=== PATIENT | male | born 1995 | race African-American/Black ===

== ENCOUNTER 2016-07-27 13:22 | Emergency (ER) | payer OTHER ==
[2016-07-27 13:50] LABS: BASOPHILS 0.1 %; BASOPHILS ABSOLUTE 0.02 10/3/uL (0.0-0.16); EOSINOPHILS 0.2 %; EOSINOPHILS ABSOLUTE 0.04 10/3/uL (0.0-0.53); HEMATOCRIT 49.9 % (40.0-51.0); HEMOGLOBIN 17.7 g/dL (13.6-17.8); IMMATURE GRANULOCYTES 0.5 %; IMMATURE GRANULOCYTES ABSOLUTE 0.08 10/3/uL (0.0-0.11); LYMPHOCYTES 15.7 %; LYMPHOCYTES ABSOLUTE 2.63 10/3/uL (0.67-4.30); MEAN CORPUS HGB CONC 35.5 g/dL (32.0-36.0); MEAN CORPUSCULAR HEMOGLOB 30.6 pg (26.0-34.0); MEAN CORPUSCULAR VOLUME 86.2 fL (80-100); MEAN PLATELET VOLUME 10.2 fL (9.2-13.0); MONOCYTES 9.9 %; MONOCYTES ABSOLUTE 1.66 10/3/uL (0.21-1.20); NEUTROPHILS 73.6 %; NEUTROPHILS ABSOLUTE 12.28 10/3/uL (2.02-8.40); PLATELET COUNT 256 10/3/uL (150-400); RED CELL COUNT 5.79 10/6/uL (4.7-6.1); WHITE BLOOD CELLS 16.7 10/3/uL (4.5-10.5)
[2016-07-27 13:51] LABS: MANUAL DIFF NO %
[2016-07-27 13:57] LABS: ASCORBIC ACID (UR NOT ORDER) NEG (NEG); BILIRUBIN, URINE NEGATIVE (NEG); ER URINALYSIS TAT 0 Hrs 14 Mins; KETONE, URINE 20 MG/DL (NEG); LEUKOCYTE ESTERASE(NOT OR NEG (NEG); NITRITE (URINE) NEG (NEG); WBC (NOT ORDERED) (RFLEX) < 1 (0-5)
[2016-07-27 14:04] LABS: A/G RATIO 0.9 (0.7-1.9); ALBUMIN 4.1 G/DL (3.5-5.0); ALKALINE PHOSPHATASE 102 U/L (45-117); BUN (BLOOD UREA NITROGEN) 14 MG/DL (6-23); CALCIUM, SERUM 9.7 MG/DL (8.5-10.4); CHLORIDE, SERUM 95 MMOL/L (96-112); CO2 (CARBON DIOXIDE) 29 MMOL/L (24-34); CREATININE 1.25 MG/DL (0.70-1.30); GFR AFRICAN AMERICAN 93 ML/MIN (>=60); GFR NON AFRICAN AMERICAN 81 ML/MIN (>=60); GLOBULIN 4.7 G/DL (2.5-4.1); GLUCOSE, SERUM 95 MG/DL (60-99); POTASSIUM, SERUM 3.5 MMOL/L (3.5-5.3); SGOT(AST) 24 U/L (5-40); SGPT(ALT) 37 U/L (5-65); SODIUM, SERUM 132 MMOL/L (135-148); TOTAL BILIRUBIN 1.3 MG/DL (0-1.2); TOTAL PROTEIN 8.8 G/DL (6.0-8.5)
[2016-08-20] MEDS ORDERED: ENDOCET1 TAB PO (18:24)
[2016-08-20] MEDS ORDERED: PRILO PO (18:25)
[2016-08-20] MEDS ORDERED: REG PO (18:25)
[2016-08-20] MEDS ORDERED: ZOFRAN4 PO (18:26)
[2016-08-20] MEDS ORDERED: T PO (18:27)
== END 2016-07-27 18:41 | disposition home or self-care (01) ==
LOC: ER 13:22
PROVIDERS: Emergency Medicine
DX: R10.9 Unspecified abdominal pain (principal); R11.2 Nausea with vomiting, unspecified
CPT/HCPCS: 80053; 81001; 83690; 85025; 96374; 99284; J1885; J2405

== ENCOUNTER 2016-08-25 10:01 | Inpatient (IN) | payer OTHER ==
--- NOTE | ~2016-08-25 | DS ---
Discharge Summary [facility] [address] [facility] [place]. [address] NAME: SALVATORE MARQUEZ 3RD : [birth year] STATUS : DIS IN PAT#: [id number] AGE: 21 ADM/REG DATE : 08/25/16 MR#: [id number] REPORT SERV DATE: 09/01/16 DICTATED BY: ELIER CHAU DATE: 08/31/16 REPORT STATUS : Draft TRANSCRIBED BY: MODL DATE: 08/31/16 ADMISSION DATE: 08/25/2016 DISCHARGE DATE: 08/31/2016 REASON FOR ADMISSION: This is a 21-year-old male, who came in with a chief complaint of abdominal pain, nausea, and vomiting with unremarkable medical history. DISCHARGE DIAGNOSES: 1. Abdominal pain. 2. Nausea and vomiting. 3. Diaphoresis. 4. Leukocytosis. 5. Marijuana use. HOSPITAL COURSE: The patient admitted for abdominal pain, nausea, and vomiting. He was having severe acute episodes of abdominal pain, followed by diaphoresis and shaking and nausea and vomiting. He had several episodes while here at the hospital witnessed, had GI consultation. There was at first concern about his gallbladder, but he had acute abdominal series showed no significant abnormalities. No evidence of free intraperitoneal air. He had a CT of the abdomen and pelvis, which would show no acute GI or obstruction, normal appendix. No evidence of kidney stone or inflammation of the bowel to explain right upper quadrant or epigastric pain and then he had a HIDA scan, which showed no scintigraphic evidence of cystic or common bile obstruction and normal gallbladder, EF of 55% and he had a mesenteric ultrasound, which showed no evidence of any significant stenosis of the great vessels of mesentery identified. His liver function panel was normal during his stay. Amylase and lipase were within normal limits and he had endoscopic ultrasound. He had a colonoscopy done by Dr. Schmitz, which showed nodular ileal mucosa, which was biopsied, one 4 mm polyp in the ascending colon, which was resected and retrieved and examined, normal on direct and retroflexion views and then he had upper EGD which showed gastric petechiae, which biopsied likely from vomiting. Normal examined duodenum, which was biopsied as well, otherwise unremarkable examination. At this point, after the scope and multiple abdominal imaging all being normal, GI really had no further input. We simply treated him symptomatically with Zofran, Phenergan, and started him on Reglan. He had an another episode of abdominal pain and nausea and vomiting after returning from HIDA scan. He had one more event the next day, but then he went 48 hours without any further events once started on Reglan, so decision was made to discharge him. He has no primary care physician, so he will need to establish one. DISCHARGE CONDITION: Stable. DISCHARGE MEDICATIONS: 1. Phenergan 25 mg p.o. q.4 hours p.r.n. 2. Zofran 4 mg q.6 hours p.r.n. 3. Nexium 40 mg p.o. daily. 4. Reglan 5 mg p.o. q.a.c. and h.s. 5. Hydrocodone one to two tablets q.4 hours p.r.n. Discharge Summary [address] [address] NAME: SALVATORE MARQUEZ 3RD : [birth year] STATUS : DIS IN PAT#: [id number] AGE: 21 ADM/REG DATE : 08/25/16 MR#: [id number] REPORT SERV DATE: 09/01/16 DICTATED BY: ELIER CHAU DATE: 08/31/16 REPORT STATUS : Draft TRANSCRIBED BY: LIDIA DATE: 08/31/16 DISCHARGE PLAN: The patient is discharged home. Establish primary care as he was given information to call phone number [phone] here at the hospital to find out who, what providers were taking his insurance, currently accepting the patient, establish primary care and follow up in one to two weeks if possible. GI did not request any followup for this patient. DICTATED BY: PATRICIA Vargas/LIDIA Elier Chau APN / [id number] CC: Godfrey Peguero MD
--- NOTE | ~2016-08-25 | EGD ---
EGD REPORT [facility] [address] [place] [place] [address] NAME: SALVATORE SINGLETON 3RD : [birth year] STATUS : ADM Jorge PAT#: [id number] AGE: 21 ADM/REG DATE : 08/25/16 MR#: [id number] REPORT SERV DATE: 08/27/16 DICTATED BY: MAREK GARCÍA DATE: 08/27/16 REPORT STATUS : Draft TRANSCRIBED BY: [facility] DATE: 08/27/16 Endoscopy Center Patient Name: Salvatore Singleton Date of : 1995 Attending MD: MAREK GARCÍA MD Procedure Date No Time: 08/27/2016 Procedure: Colonoscopy Indications: Periumbilical abdominal pain Medicines: Monitored Anesthesia Care Complications: No immediate complications. Estimated blood loss: Minimal. Procedure: Pre-Anesthesia Assessment: - ASA Grade Assessment: II - A patient with mild systemic disease. After I obtained informed consent, the scope was passed under direct vision. Throughout the procedure, the patient's blood pressure, pulse, and oxygen saturations were monitored continuously. The CF [id number] was introduced through the anus and advanced to the terminal ileum, with identification of the appendiceal orifice and IC valve. The colonoscopy was performed without difficulty. The patient tolerated the procedure well. The quality of the bowel preparation was good. Findings: The perianal and digital rectal examinations were normal. Pertinent negatives include no palpable rectal lesions. An area of mucosa in the terminal ileum was nodular. Biopsies were taken with a cold forceps for histology. Estimated blood loss was minimal. A sessile polyp was found in the ascending colon. The polyp was 4 mm in size. The polyp was removed with a cold biopsy forceps. Resection and retrieval were complete. Estimated blood loss was minimal. The exam was otherwise without abnormality on direct and retroflexion views. Impression: - Nodular ileal mucosa. Biopsied. - One 4 mm polyp in the ascending colon. Resected and retrieved. - The examination was otherwise normal on direct and retroflexion views. Recommendation: - [facility] patient to [facility] care. - Clear liquid diet today. Procedure Code(s): --- Professional --- EGD REPORT [facility] [address] [address] NAME: SALVATORE SINGLETON 3RD : [birth year] STATUS : ADM Jorge PAT#: [id number] AGE: 21 ADM/REG DATE : 08/25/16 MR#: [id number] REPORT SERV DATE: 08/27/16 DICTATED BY: MAREK GARCÍA DATE: 08/27/16 REPORT STATUS : Draft TRANSCRIBED BY: [employer] DATE: 08/27/16 [id number], Colonoscopy, flexible, proximal to splenic flexure; with biopsy, single or multiple Diagnosis Code(s): --- Professional --- K63.89, Other specified diseases of intestine D12.2, Benign neoplasm of ascending colon R10.33, Periumbilical pain CPT copyright 2013 [employer]. All rights reserved. The codes documented in this report are preliminary and upon certified coder review may be revised to meet current compliance requirements. Marek García MD MAREK GARCÍA MD 08/27/2016 9:20 AM This report has been signed electronically. Number of Addenda: 0 Note Initiated On: 08/27/2016 7:59 AM Scope Withdrawal Time 0 hours 18 minutes 5 seconds [address] [id number]
--- NOTE | ~2016-08-25 | HP ---
History And Physical [place] [address] [facility] [place]. [address] NAME: SALVATORE MARQUEZ 3RD : [birth year] STATUS : ADM Jorge PAT#: [id number] AGE: 21 ADM/REG DATE : 08/25/16 MR#: [id number] REPORT SERV DATE: 08/25/16 DICTATED BY: MIKEL ROSE DATE: 08/25/16 REPORT STATUS : Draft TRANSCRIBED BY: MODL DATE: 08/25/16 DATE OF ADMISSION: 08/25/2016 CHIEF COMPLAINT: Abdominal pain. HISTORY OF PRESENT ILLNESS: The patient is a 21-year-old male. He has complained of abdominal pain today, states his symptoms have been going on approximately a month. It began around July 24, since that time, he has apparently had 2 evaluations in the [facility] and 1 at [facility] and 1 to 2 evaluations here at [facility] including today as well as an in-patient stay here, recently discharged and a clinic visit with a local brush trimming machine setter and imaging done at [facility], all these records are currently unavailable for me today the patient states that the consistent symptoms he has had since July 24 are abdominal pain. He states it usually begins after he eats, sometimes but up to several hours. He will usually get abdominal pain. He describes it as periumbilical. He states it is sharp and stabbing and will last several minutes and usually associated with nausea. If he does vomit, it is usually mucus, it is not the food he ate and he has had 1 abnormal bowel movement over this time. It is not a consistent problem. He has had no documented temperature. He does not seem to notice it with any particular type of food. It does seem to be more prominent in the morning. He has had multiple medications that he is unable to recall specifically prescribed through all his various appointments noted and that seemed to help. He presented back to the emergency room today. Hospitalist service was asked to admit with unresolved symptoms and a mild leukocytosis. PAST MEDICAL HISTORY: Otherwise unremarkable. PAST SURGICAL HISTORY: He had a cyst removed from his chin approximately 13 years ago. MEDICATIONS: Nexium 40, Zofran, and Phenergan. ALLERGIES: NONE. FAMILY HISTORY: There are a lot of malignancies including esophageal and breast cancer on his mom's side of the family but not the immediate family. SOCIAL HISTORY: He will occasionally use marijuana. No alcohol or smoking. REVIEW OF SYSTEMS: HEENT: No complaints. CARDIOVASCULAR: No chest pain or palpitations. PULMONARY: No cough or shortness of breath. GI: As covered in HPI. : He has not noticed any dysuria, frequency, or urgency symptoms with his abdominal pain. NEUROMUSCULOSKELETAL: No aches, pains, myalgia, rash, otherwise 10-point review of systems is negative. PHYSICAL EXAMINATION: VITAL SIGNS: Blood pressure 131/83, temperature 98.2, pulse was 117, respirations 22, and History And Physical [address] [address] NAME: SALVATORE MARQUEZ 3RD : [birth year] STATUS : ADM Jorge PAT#: [id number] AGE: 21 ADM/REG DATE : 08/25/16 MR#: [id number] REPORT SERV DATE: 08/25/16 DICTATED BY: MIKEL ROSE DATE: 08/25/16 REPORT STATUS : Draft TRANSCRIBED BY: LIDIA DATE: 08/25/16 weight 67 kg. GENERAL: In general, he is awake, alert, and oriented. HEENT: Normocephalic, atraumatic. Sclerae nonicteric. NECK: Supple. HEART: Heart is tachycardic, regular. LUNGS: Clear to auscultation. ABDOMEN: No guarding, rebound tenderness, or distention. No periumbilical and no suprapubic pain. EXTREMITIES: No clubbing, cyanosis, or edema. NEUROLOGIC: Grossly nonfocal. LABS: BMP from today shows a potassium of 3.4, otherwise unremarkable. He does have a high normal creatinine at 1.22. Lipase was 230. His lab work from the was only otherwise remarkable for a bilirubin at that time of 1.5. White count today 18.4 with an H and H of 16.6 and 45.8, platelets are 229. Previously white count of 16,000 on the . Urinalysis was cloudy but otherwise unremarkable. Acute abdominal series done today shows no evidence of acute abnormality within the abdomen. There is probable contrast in the appendix. No bowel gas abnormalities. No evidence of free air. No areas of significant mass effect. ASSESSMENT: Abdominal pain with nausea and vomiting. Mild leukocytosis. PLAN: The patient has been admitted. Additional lab, IV fluids, question repeat CT. We will check a procalcitonin and lactate. Reasonable pain and nausea medications. TLF/MODL Mikel Rose M.D. / [id number]
--- NOTE | ~2016-08-25 | EGD ---
EGD REPORT [facility] [address] [place] [address] NAME: SALVATORE SINGLETON 3RD : [birth year] STATUS : ADM Jorge PAT#: [id number] AGE: 21 ADM/REG DATE : 08/25/16 MR#: [id number] REPORT SERV DATE: 08/27/16 DICTATED BY: MAREK GARCÍA DATE: 08/27/16 REPORT STATUS : Draft TRANSCRIBED BY: [facility] DATE: 08/27/16 Endoscopy Center Patient Name: Salvatore Singleton Date of : 1995 Attending MD: MAREK GARCÍA MD Procedure Date No Time: 08/27/2016 Procedure: Upper GI endoscopy Indications: Epigastric abdominal pain, Periumbilical abdominal pain, Persistent vomiting of unknown cause Medicines: Monitored Anesthesia Care Complications: No immediate complications. Estimated blood loss: Minimal. Procedure: Pre-Anesthesia Assessment: - ASA Grade Assessment: II - A patient with mild systemic disease. After obtaining informed consent, the endoscope was passed under direct vision. Throughout the procedure, the patient's blood pressure, pulse, and oxygen saturations were monitored continuously. The GIF [id number] was introduced through the mouth, and advanced to the second part of duodenum. The upper GI endoscopy was accomplished without difficulty. The patient tolerated the procedure well. Findings: The examined esophagus was normal. Multiple localized petechiae were found in the gastric fundus. Biopsies were taken with a cold forceps for histology. Estimated blood loss was minimal. The examined duodenum was normal. Biopsies were taken with a cold forceps for histology. Estimated blood loss was minimal. The cardia and gastric fundus were normal on retroflexion. Impression: - Gastric petechia(e). Biopsied. Likely from vomiting. - Normal examined duodenum. Biopsied. - Otherwise unremarkable examination Recommendation: - Perform a colonoscopy today. - Await pathology results. Procedure Code(s): --- Professional --- 42899, Esophagogastroduodenoscopy, flexible, transoral; with biopsy, single or multiple Diagnosis Code(s): --- Professional --- EGD REPORT [facility] [address] [place]. [address] NAME: SALVATORE SINGLETON 3RD : [birth year] STATUS : ADM Jorge PAT#: [id number] AGE: 21 ADM/REG DATE : 08/25/16 MR#: [id number] REPORT SERV DATE: 08/27/16 DICTATED BY: MAREK GARCÍA DATE: 08/27/16 REPORT STATUS : Draft TRANSCRIBED BY: [employer] DATE: 08/27/16 K31.9, Disease of stomach and duodenum, unspecified R10.13, Epigastric pain R10.33, Periumbilical pain R11.10, Vomiting, unspecified CPT copyright 2013 [employer]. All rights reserved. The codes documented in this report are preliminary and upon sharepoint solutions developer review may be revised to meet current compliance requirements. Marek García MD MAREK GARCÍA MD 08/27/2016 8:41 AM This report has been signed electronically. Number of Addenda: 0 Note Initiated On: 08/27/2016 8:16 AM Scope Withdrawal Time 0 hours 0 minutes 0 seconds [address] [place] [address]
--- NOTE | ~2016-08-25 | CN ---
Consultation Report [facility] [address] [place]. [address] NAME: SALVATORE SINGLETON 3RD : [birth year] STATUS : ADM Jorge PAT#: [id number] AGE: 21 ADM/REG DATE : 08/25/16 MR#: [id number] REPORT SERV DATE: 08/25/16 DICTATED BY: EUGENIA KHOURY DATE: 08/25/16 REPORT STATUS : Draft TRANSCRIBED BY: MODL DATE: 08/25/16 GI CONSULTATION DATE OF CONSULTATION: 08/25/2016 A 21-year-old male patient admitted on 08/25/2016. REASON FOR CONSULTATION: Evaluation and management of abdominal pain, nausea, vomiting, and leukocytosis. HISTORY OF PRESENT ILLNESS: Mr. Salvatore Singleton is a pleasant 21-year-old male patient, who has seen and admitted in [facility] emergency room on 08/30/2016. He is here with a chief complaint of abdominal pain. His symptoms began on 07/24/2016. He states that he woke up one morning and had a bowel movement and experienced extreme right upper quadrant epigastric abdominal pain. He began to have nausea and vomiting. Abdominal discomfort persisted throughout the day. He states that he breaks out into these diaphoretic episodes. He has not had any fever but he has had chilling. His symptoms have persisted. He has been seen, what the mother states, at [facility] emergency department as well as [facility] Department and he was admitted here to [facility] on the CV unit last week and was discharged on August 22. He was seen by Dr. Nascimento, tube depatcher, who per the mother, performed an upper endoscopy which was reported as negative. There are no records for review at this time in the system. The patient states that his symptoms typically improved somewhat in the afternoon. He is able to take in some liquids and some food but then everything begins again in the morning. He has a history of being in the [place] but he has been back in the [place] area since 2014. He does admit to smoking marijuana; he states every 3 to 4 days, he will smoke marijuana and when he does smoke, he smokes what he indicates is a large amount. He denies any other illicit drugs. He denies any heartburn or indigestion. He describes this as a sharp, stabbing right upper quadrant epigastric abdominal pain. He denies blood in his emesis. He denies blood in his stools. He has not seen any melena. His white blood cell count on admission 18.4, hemoglobin was 16.6 with hematocrit of 48.8. He had normal LFTs. He states that he has had a CT scan done at [place] but is unsure of the results. Secondary to the persistence of his symptoms and inability to continue with his activities of daily living, he re-presented today for further evaluation. KUB was obtained and only showed residual contrast present in the right lower quadrant. The patient's mother states that he had an outpatient upper GI series last Thursday at [facility] which was reported to her as negative. I have discussed with the patient as well as the patient's mother present at the bedside that we will plan on repeating CT scan with oral and IV contrast; if that is negative, we would potentially perform a HIDA scan. I have discussed with them EGD and colonoscopy for repeat of those tests as he has never had a colonoscopy and they are agreeable to proceed with that. Of note, the patient was to be seen in our office on 08/27/2016, in the evening hours with nurse practitioner, Anabel Polanco. PAST MEDICAL HISTORY: He has a past medical history positive for recent epigastric abdominal pain, nausea, and vomiting. Consultation Report [address] [place]. [address] NAME: SALVATORE SINGLETON 3RD : [birth year] STATUS : ADM Jorge PAT#: [id number] AGE: 21 ADM/REG DATE : 08/25/16 MR#: [id number] REPORT SERV DATE: 08/25/16 DICTATED BY: EUGENIA KHOURY DATE: 08/25/16 REPORT STATUS : Draft TRANSCRIBED BY: MODL DATE: 08/25/16 SURGICAL HISTORY: Cyst removal from underneath his chin when he was in the 5th grade. ALLERGIES: HE DENIES. FAMILY HISTORY: Esophageal malignancy in some family members on his mother's side. SOCIAL HISTORY: He denies alcohol or tobacco. He states he uses marijuana occasionally. HOME MEDICATIONS: Consist of Nexium, Zofran, and Phenergan. REVIEW OF SYSTEMS: A 10-point review of systems has been obtained with pertinent positives being addressed in the history of present illness. PHYSICAL EXAMINATION: VITAL SIGNS: Temperature 98.2, pulse 117, respirations 22, and blood pressure 131/83. NEUROLOGIC: Physical exam reveals an alert, male, resting in bed with no focal deficits. Generally cooperative. He is in mild distress secondary to abdominal discomfort as well as diaphoresis. He is awake, alert, and oriented x3. HEAD, EARS, EYES, NOSE, AND THROAT: He has some very mild looking icterus to his conjunctiva; however, his total bilirubin is normal. His pupils are equal, round, and reactive to light and accommodation. Normocephalic and atraumatic. NECK: Supple. No JVD or palpable nodes. LUNGS: His lungs are clear anteriorly with normal respiratory effort exhibited with equal expansion. CARDIOVASCULAR SYSTEM: Regular rate and rhythm but tachycardic. ABDOMEN: Soft with tenderness to palpation to the right epigastric region which causes him voluntary guarding. He has hypoactive bowel sounds throughout all four quadrants. EXTREMITIES: No edema. Normal distal pulses. SKIN: Warm, dry, and intact. PERTINENT LABS: Sodium 136, potassium 3.4, BUN is 8, creatinine 1.22. White count 18.4, hemoglobin 16.6, and hematocrit 45.8. Total bilirubin 0.6, alkaline phosphatase 86, ALT 22, and AST 14. ASSESSMENT/PLAN: 1. Abdominal pain, persistent x1 month, epigastric and right upper quadrant in nature. Question if this could be biliary dyskinesia, peptic ulcer disease, gastritis, Helicobacter pylori, or constipation. 2. Nausea with vomiting. 3. Diaphoresis. PLAN: 1. Check LFTs. Consultation Report [address] [place]. [address] NAME: SALVATORE SINGLETON 3RD : [birth year] STATUS : ADM Jorge PAT#: [id number] AGE: 21 ADM/REG DATE : 08/25/16 MR#: [id number] REPORT SERV DATE: 08/25/16 DICTATED BY: EUGENIA KHOURY DATE: 08/25/16 REPORT STATUS : Draft TRANSCRIBED BY: LIDIA DATE: 08/25/16 2. A.m. labs. 3. CBC, BMP. 4. CT scan of the abdomen and pelvis with oral and IV contrast. 5. If negative CT scan of the gallbladder, we would recommend HIDA scan. 6. EGD and colonoscopy on Thursday. If the patient does have diarrhea, we would send for stool studies, C. diff, ova and parasites, and wbc's. 7. The plan of care was discussed with the patient as well as mother who is present at the bedside. Other recommendations to follow testing. EULALIA/LIDIA RAY Leija / [id number] CC: Gilbert Ferguson M.D.
[2016-08-25 09:53] LABS: BASOPHILS 0.1 %; BASOPHILS ABSOLUTE 0.02 10/3/uL (0.0-0.16); EOSINOPHILS 0.2 %; EOSINOPHILS ABSOLUTE 0.04 10/3/uL (0.0-0.53); ER CBC TAT 0 Hrs 05 Mins; HEMATOCRIT 45.8 % (40.0-51.0); HEMOGLOBIN 16.6 g/dL (13.6-17.8); IMMATURE GRANULOCYTES 0.4 %; IMMATURE GRANULOCYTES ABSOLUTE 0.07 10/3/uL (0.0-0.11); LYMPHOCYTES 15.1 %; LYMPHOCYTES ABSOLUTE 2.79 10/3/uL (0.67-4.30); MEAN CORPUS HGB CONC 36.2 g/dL (32.0-36.0); MEAN CORPUSCULAR HEMOGLOB 31.1 pg (26.0-34.0); MEAN CORPUSCULAR VOLUME 85.9 fL (80-100); MEAN PLATELET VOLUME 9.5 fL (9.2-13.0); MONOCYTES 6.1 %; MONOCYTES ABSOLUTE 1.12 10/3/uL (0.21-1.20); NEUTROPHILS 78.1 %; NEUTROPHILS ABSOLUTE 14.39 10/3/uL (2.02-8.40); PLATELET COUNT 299 10/3/uL (150-400); RBC DISTRIBUTION WIDTH 12.6 % (12.0-16.0); RED CELL COUNT 5.33 10/6/uL (4.7-6.1); WHITE BLOOD CELLS 18.4 10/3/uL (4.5-10.5)
[2016-08-25 09:54] LABS: MANUAL DIFF NO %
[~2016-08-25 10:01] MED LIST: ENDOCET1 TAB PO; PRILO PO; REG PO; T PO; ZOFRAN4 PO
[2016-08-25 10:08] LABS: A/G RATIO 1.2 (0.7-1.9); ALBUMIN 4.5 G/DL (3.5-5.0); ALKALINE PHOSPHATASE 86 U/L (45-117); BUN (BLOOD UREA NITROGEN) 8 MG/DL (6-23); CALCIUM, SERUM 9.9 MG/DL (8.5-10.4); CHLORIDE, SERUM 99 MMOL/L (96-112); CO2 (CARBON DIOXIDE) 26 MMOL/L (24-34); CREATININE 1.22 MG/DL (0.70-1.30); GFR AFRICAN AMERICAN 96 ML/MIN (>=60); GFR NON AFRICAN AMERICAN 83 ML/MIN (>=60); GLOBULIN 3.8 G/DL (2.5-4.1); GLUCOSE, SERUM 110 MG/DL (60-99); POTASSIUM, SERUM 3.4 MMOL/L (3.5-5.3); SGOT(AST) 14 U/L (5-40); SGPT(ALT) 22 U/L (5-65); SODIUM, SERUM 136 MMOL/L (135-148); TOTAL BILIRUBIN 0.6 MG/DL (0-1.2); TOTAL PROTEIN 8.3 G/DL (6.0-8.5)
[2016-08-25] MEDS ORDERED: ZOFRAN4 PO (11:41)
[2016-08-25] MEDS ORDERED: PR25 PO (11:41)
[2016-08-25 11:51] LABS: ASCORBIC ACID (UR NOT ORDER) NEG (NEG); BILIRUBIN, URINE NEGATIVE (NEG); KETONE, URINE 20 MG/DL (NEG); LEUKOCYTE ESTERASE(NOT OR NEG (NEG); NITRITE (URINE) NEG (NEG); WBC (NOT ORDERED) (RFLEX) < 1 (0-5)
[2016-08-25 16:56] LABS: ULTRASENSITIVE TSH 0.539 MCIU/ML (0.358-3.740)
[2016-08-25 16:57] LABS: PHOSPHORUS, SERUM 0.8 MG/DL (2.5-4.5)
[2016-08-25 17:35] LABS: PROCALCITONIN < 0.05 ng/mL (<0.5)
[2016-08-25 19:06] LABS: AMPHETAMINES (NOT ORD) NEG (NEG); BARBITURATES (NOT ORDERED NEG (NEG); BENZODIAZEPINES (NOT ORD) NEG (NEG); CANNABINOIDS (THC) POS (NEG); COCAINE (NOT ORDERED) NEG (NEG); OPIATES NEG (NEG); PHENCYCLIDINE(PCP) NEG (NEG); TRICYCLICS NEG (NEG)
[2016-08-26 06:24] LABS: INTERNATIONAL NORMAL RATI 1.2 UNITS (-); PROTIME (NOT ORD) 14.9 SEC (12.0-14.5)
[2016-08-26 06:26] LABS: ALBUMIN 3.2 G/DL (3.5-5.0); ALKALINE PHOSPHATASE 61 U/L (45-117); BUN (BLOOD UREA NITROGEN) 4 MG/DL (6-23); CALCIUM, SERUM 8.7 MG/DL (8.5-10.4); CHLORIDE, SERUM 107 MMOL/L (96-112); CO2 (CARBON DIOXIDE) 30 MMOL/L (24-34); CREATININE 0.99 MG/DL (0.70-1.30); DIRECT BILIRUBIN 0.1 MG/DL (0.0-0.4); GFR AFRICAN AMERICAN 124 ML/MIN (>=60); GFR NON AFRICAN AMERICAN 107 ML/MIN (>=60); GLUCOSE, SERUM 92 MG/DL (60-99); INDIRECT BILIRUBIN(NOT ORDER) 0.5 MG/DL (0.1-0.9); POTASSIUM, SERUM 4.3 MMOL/L (3.5-5.3); SGOT(AST) 10 U/L (5-40); SGPT(ALT) 16 U/L (5-65); SODIUM, SERUM 140 MMOL/L (135-148); TOTAL BILIRUBIN 0.6 MG/DL (0-1.2)
[2016-08-26 06:32] LABS: BASOPHILS 0.2 %; BASOPHILS ABSOLUTE 0.03 10/3/uL (0.0-0.16); EOSINOPHILS 0.8 %; EOSINOPHILS ABSOLUTE 0.12 10/3/uL (0.0-0.53); HEMOGLOBIN 13.4 g/dL (13.6-17.8); IMMATURE GRANULOCYTES 0.6 %; IMMATURE GRANULOCYTES ABSOLUTE 0.08 10/3/uL (0.0-0.11); LYMPHOCYTES 28.7 %; LYMPHOCYTES ABSOLUTE 4.12 10/3/uL (0.67-4.30); MEAN CORPUSCULAR HEMOGLOB 30.5 pg (26.0-34.0); MEAN PLATELET VOLUME 9.9 fL (9.2-13.0); MONOCYTES 7.7 %; NEUTROPHILS ABSOLUTE 8.91 10/3/uL (2.02-8.40); PLATELET COUNT 264 10/3/uL (150-400); RBC DISTRIBUTION WIDTH 12.9 % (12.0-16.0); WHITE BLOOD CELLS 14.4 10/3/uL (4.5-10.5)
[2016-08-26 06:37] LABS: HEMATOCRIT 39.2 % (40.0-51.0); MANUAL DIFF NO %; MEAN CORPUS HGB CONC 34.2 g/dL (32.0-36.0); MEAN CORPUSCULAR VOLUME 89.1 fL (80-100)
[2016-08-27 04:29] LABS: BASOPHILS 0.2 %; BASOPHILS ABSOLUTE 0.02 10/3/uL (0.0-0.16); EOSINOPHILS 0.9 %; HEMATOCRIT 39.1 % (40.0-51.0); HEMOGLOBIN 13.4 g/dL (13.6-17.8); IMMATURE GRANULOCYTES 0.3 %; IMMATURE GRANULOCYTES ABSOLUTE 0.03 10/3/uL (0.0-0.11); LYMPHOCYTES 32.6 %; LYMPHOCYTES ABSOLUTE 3.75 10/3/uL (0.67-4.30); MEAN CORPUS HGB CONC 34.3 g/dL (32.0-36.0); MEAN CORPUSCULAR HEMOGLOB 30.4 pg (26.0-34.0); MEAN CORPUSCULAR VOLUME 88.7 fL (80-100); MEAN PLATELET VOLUME 9.3 fL (9.2-13.0); MONOCYTES 7.5 %; MONOCYTES ABSOLUTE 0.86 10/3/uL (0.21-1.20); NEUTROPHILS 58.5 %; NEUTROPHILS ABSOLUTE 6.74 10/3/uL (2.02-8.40); PLATELET COUNT 276 10/3/uL (150-400); RBC DISTRIBUTION WIDTH 12.8 % (12.0-16.0); RED CELL COUNT 4.41 10/6/uL (4.7-6.1); WHITE BLOOD CELLS 11.5 10/3/uL (4.5-10.5)
[2016-08-27 04:30] LABS: MANUAL DIFF NO %
[2016-08-27 04:35] LABS: INTERNATIONAL NORMAL RATI 1.1 UNITS (-); PROTIME (NOT ORD) 14.3 SEC (12.0-14.5)
[2016-08-27 04:46] LABS: BUN (BLOOD UREA NITROGEN) 3 MG/DL (6-23); CALCIUM, SERUM 9.1 MG/DL (8.5-10.4); CHLORIDE, SERUM 104 MMOL/L (96-112); CO2 (CARBON DIOXIDE) 30 MMOL/L (24-34); CREATININE 0.94 MG/DL (0.70-1.30); GFR AFRICAN AMERICAN 132 ML/MIN (>=60); GFR NON AFRICAN AMERICAN 114 ML/MIN (>=60); GLUCOSE, SERUM 96 MG/DL (60-99); POTASSIUM, SERUM 3.9 MMOL/L (3.5-5.3); SODIUM, SERUM 140 MMOL/L (135-148)
[2016-08-28 05:00] LABS: BUN (BLOOD UREA NITROGEN) 5 MG/DL (6-23); CALCIUM, SERUM 9.3 MG/DL (8.5-10.4); CHLORIDE, SERUM 105 MMOL/L (96-112); CO2 (CARBON DIOXIDE) 27 MMOL/L (24-34); CREATININE 0.99 MG/DL (0.70-1.30); GFR AFRICAN AMERICAN 124 ML/MIN (>=60); GFR NON AFRICAN AMERICAN 107 ML/MIN (>=60); GLUCOSE, SERUM 80 MG/DL (60-99); POTASSIUM, SERUM 3.9 MMOL/L (3.5-5.3); SODIUM, SERUM 139 MMOL/L (135-148)
[2016-08-28 05:05] LABS: BASOPHILS 0.2 %; BASOPHILS ABSOLUTE 0.04 10/3/uL (0.0-0.16); EOSINOPHILS 0.8 %; EOSINOPHILS ABSOLUTE 0.17 10/3/uL (0.0-0.53); HEMATOCRIT 42.9 % (40.0-51.0); HEMOGLOBIN 14.8 g/dL (13.6-17.8); IMMATURE GRANULOCYTES 0.4 %; IMMATURE GRANULOCYTES ABSOLUTE 0.08 10/3/uL (0.0-0.11); LYMPHOCYTES 19.8 %; LYMPHOCYTES ABSOLUTE 4.28 10/3/uL (0.67-4.30); MEAN CORPUS HGB CONC 34.5 g/dL (32.0-36.0); MEAN CORPUSCULAR HEMOGLOB 30.3 pg (26.0-34.0); MEAN CORPUSCULAR VOLUME 87.9 fL (80-100); MEAN PLATELET VOLUME 9.9 fL (9.2-13.0); MONOCYTES 7.3 %; MONOCYTES ABSOLUTE 1.58 10/3/uL (0.21-1.20); NEUTROPHILS 71.5 %; PLATELET COUNT 288 10/3/uL (150-400); RBC DISTRIBUTION WIDTH 12.9 % (12.0-16.0); RED CELL COUNT 4.88 10/6/uL (4.7-6.1); WHITE BLOOD CELLS 21.7 10/3/uL (4.5-10.5)
[2016-08-28 05:06] LABS: MANUAL DIFF NO %
[2016-08-29 04:10] LABS: BASOPHILS 0.2 %; BASOPHILS ABSOLUTE 0.03 10/3/uL (0.0-0.16); EOSINOPHILS 1.6 %; EOSINOPHILS ABSOLUTE 0.23 10/3/uL (0.0-0.53); HEMOGLOBIN 12.9 g/dL (13.6-17.8); IMMATURE GRANULOCYTES 0.5 %; IMMATURE GRANULOCYTES ABSOLUTE 0.07 10/3/uL (0.0-0.11); LYMPHOCYTES 27.7 %; MEAN CORPUS HGB CONC 33.7 g/dL (32.0-36.0); MEAN CORPUSCULAR HEMOGLOB 30.5 pg (26.0-34.0); MEAN CORPUSCULAR VOLUME 90.5 fL (80-100); MEAN PLATELET VOLUME 9.6 fL (9.2-13.0); MONOCYTES 7.1 %; MONOCYTES ABSOLUTE 1.03 10/3/uL (0.21-1.20); NEUTROPHILS 62.9 %; PLATELET COUNT 285 10/3/uL (150-400); RED CELL COUNT 4.23 10/6/uL (4.7-6.1); WHITE BLOOD CELLS 14.5 10/3/uL (4.5-10.5)
[2016-08-29 04:12] LABS: HEMATOCRIT 38.3 % (40.0-51.0); MANUAL DIFF NO %
[2016-08-29 04:57] LABS: ALBUMIN 3.2 G/DL (3.5-5.0); ALKALINE PHOSPHATASE 57 U/L (45-117); BUN (BLOOD UREA NITROGEN) 8 MG/DL (6-23); CALCIUM, SERUM 8.7 MG/DL (8.5-10.4); CHLORIDE, SERUM 109 MMOL/L (96-112); CO2 (CARBON DIOXIDE) 32 MMOL/L (24-34); CREATININE 1.06 MG/DL (0.70-1.30); DIRECT BILIRUBIN < 0.1 MG/DL (0.0-0.4); FERRITIN 223 NG/ML (26-388); FOLATE 6.6 NG/ML (>5.2); GFR AFRICAN AMERICAN 114 ML/MIN (>=60); GFR NON AFRICAN AMERICAN 98 ML/MIN (>=60); GLUCOSE, SERUM 78 MG/DL (60-99); INDIRECT BILIRUBIN(NOT ORDER) 0.6 MG/DL (0.1-0.9); IRON BINDING CAPACITY 233 MCG/DL (250-450); IRON, SERUM 69 MCG/DL (35-150); POTASSIUM, SERUM 3.7 MMOL/L (3.5-5.3); SGOT(AST) 9 U/L (5-40); SGPT(ALT) 14 U/L (5-65); SODIUM, SERUM 144 MMOL/L (135-148); TOTAL BILIRUBIN 0.7 MG/DL (0-1.2); TOTAL PROTEIN 6.1 G/DL (6.0-8.5)
[2016-08-30 04:09] LABS: BASOPHILS 0.2 %; BASOPHILS ABSOLUTE 0.03 10/3/uL (0.0-0.16); EOSINOPHILS 0.9 %; EOSINOPHILS ABSOLUTE 0.14 10/3/uL (0.0-0.53); HEMATOCRIT 39.9 % (40.0-51.0); HEMOGLOBIN 13.8 g/dL (13.6-17.8); IMMATURE GRANULOCYTES 0.4 %; IMMATURE GRANULOCYTES ABSOLUTE 0.07 10/3/uL (0.0-0.11); LYMPHOCYTES 26.6 %; LYMPHOCYTES ABSOLUTE 4.17 10/3/uL (0.67-4.30); MANUAL DIFF NO %; MEAN CORPUS HGB CONC 34.6 g/dL (32.0-36.0); MEAN CORPUSCULAR HEMOGLOB 30.7 pg (26.0-34.0); MEAN CORPUSCULAR VOLUME 88.9 fL (80-100); MEAN PLATELET VOLUME 9.5 fL (9.2-13.0); MONOCYTES 7.5 %; MONOCYTES ABSOLUTE 1.17 10/3/uL (0.21-1.20); NEUTROPHILS 64.4 %; NEUTROPHILS ABSOLUTE 10.09 10/3/uL (2.02-8.40); PLATELET COUNT 307 10/3/uL (150-400); RBC DISTRIBUTION WIDTH 12.7 % (12.0-16.0); RED CELL COUNT 4.49 10/6/uL (4.7-6.1); WHITE BLOOD CELLS 15.7 10/3/uL (4.5-10.5)
[2016-08-30 04:21] LABS: BUN (BLOOD UREA NITROGEN) 5 MG/DL (6-23); CALCIUM, SERUM 9.3 MG/DL (8.5-10.4); CHLORIDE, SERUM 106 MMOL/L (96-112); CO2 (CARBON DIOXIDE) 29 MMOL/L (24-34); GFR AFRICAN AMERICAN 122 ML/MIN (>=60); GFR NON AFRICAN AMERICAN 106 ML/MIN (>=60); GLUCOSE, SERUM 89 MG/DL (60-99); POTASSIUM, SERUM 3.7 MMOL/L (3.5-5.3); SODIUM, SERUM 141 MMOL/L (135-148)
[2016-08-31] MEDS ORDERED: REG5 PO (12:44)
[2016-08-31] MEDS ORDERED: NORCO1 TA1 PO (12:48)
[2016-09-03 14:25] LABS: COPROPORPHYRIN [CALC] 109 ug/24h (<110); UROPORPHYRIN [CALC] 15 ug/24h (<50)
[2016-09-04 11:18] LABS: TIME 24 h (()); VOLUME 1250 mL (())
== END 2016-08-31 14:12 | disposition home or self-care (01) | DRG 392 ==
LOC: ER 10:01 → CDU1 14:33 → CDU2 15:11 → 5SO 08-30 15:33
PROVIDERS: Emergency Medicine; Internal Medicine; Internal Medicine Gastroenterology; Nurse Practitioner Family; Nurse Practitioner Gerontology
PROC: 0DBK8ZZ Excision of Ascending Colon, Via Natural or Artificial Opening Endoscopic (ICD-10-PCS; 2016-08-27)
PROC: 0DB98ZX Excision of Duodenum, Via Natural or Artificial Opening Endoscopic, Diagnostic (ICD-10-PCS; principal; 2016-08-27 08:00)
PROC: 0DB68ZX Excision of Stomach, Via Natural or Artificial Opening Endoscopic, Diagnostic (ICD-10-PCS; 2016-08-27 08:00)
DX: R10.11 Right upper quadrant pain (principal); D12.2 Benign neoplasm of ascending colon; R11.2 Nausea with vomiting, unspecified; F12.90 Cannabis use, unspecified, uncomplicated; R61 Generalized hyperhidrosis
CPT/HCPCS: 74022; 74177; 78226; 78227; 80048; 80053; 80076; 80305; 81001; 82607; 82728; 82746; 83540; 83550; 83605; 83690; 83735; 84100; 84120; 84145; 84443; 85025; 85610; 85652; 86140; 87045; 87046; 87046-59; 87328; 87329; 87493; 87493-59; 87899; 87899-59; 88305; 89055; 93975; 96374; 99285; A9270-GY; A9537; C9113; J1170; J2405; J2765; J2805

== ENCOUNTER 2016-09-06 21:28 | Inpatient (IN) | payer OTHER ==
--- NOTE | ~2016-09-06 | DS ---
Discharge Summary [id number] [place]. [address] NAME: SALVATORE MARQUEZ 3RD : 93 STATUS : DIS IN PAT#: [id number] AGE: 21 ADM/REG DATE : 09/06/16 MR#: [id number] REPORT SERV DATE: 09/09/16 DICTATED BY: DATE: REPORT STATUS : Draft TRANSCRIBED BY: MODL DATE: 09/08/16 ADMISSION DATE: 09/06/2016 DISCHARGE DATE: 09/08/2016 DISCHARGE DIAGNOSES: 1. Recurrent acute on chronic epigastric pain. 2. Nausea and vomiting. 3. Diarrhea. 4. Cannabinoid use. 5. Hyperammonemia. CONSULTATIONS: GI, Dr. Coffey. PROCEDURES AND IMAGIN. 09/06/2016, portable chest x-ray showed no acute cardiopulmonary process. 2. 09/06/2016, CT of the abdomen and pelvis with contrast showed:. a. Large bowel diffuse thickening of the ascending, transverse, and descending colon. This may represent early long segment infectious or inflammatory colitis. No pericolonic abscess. b. Small normal caliber appendix, right upper pelvis. c. No CT evidence of pancreatitis. 3. 09/08/2016, ultrasound of the abdomen showed obscuration of the tail of the pancreas by gas. Otherwise, negative abdominal ultrasound. HOSPITAL COURSE: Please refer to Dr. Tanisha Chavis's H and P dated 09/06/2016 for complete details regarding the patient's admission. In brief, the patient was admitted by Dr. Chavis for initial workup and management of his acute on chronic abdominal pain, nausea, vomiting, and diarrhea. This is a very pleasant 21-year-old black gentleman who has had episodes of intractable abdominal pain, nausea, and vomiting for several months. The patient has had extensive workup and was discharged from the hospital on 09/01/2016 for similar symptoms. The patient has had extensive testing prior to this admission as well as a scope by Dr. Schmitz. During his stay, his urine drug screen was positive for cannabinoids and opiates. The patient states that the only thing that was helping his nausea was his occasional use of marijuana. It was recommended to the patient, for him to observe for any possible triggers of anything he does or eats that might be triggering his abdominal pain. The patient has had stool studies done. His ova and parasite screen was negative, and his C diff was also negative. There was no Shigella found, and a gastric culture is in progress. The patient has had one bowel movement, which was yesterday, from which these stool studies were evaluated. The patient had a small episode of hyperammonemia, which was 48 and was given one dose of lactulose, which has brought it down to 37. CURRENT LABORATORY DATA: Sodium is 142, potassium is 4.2, chloride is 109, BUN is 8, creatinine is 0.97, GFR is 127, glucose is 93, calcium is 9.1, magnesium is 1.9. WBCs 12.3, hemoglobin 12.5, hematocrit 37.6, platelets 277. Of note, the patient did have initial WBC count of 19.8, which has now decreased down to 12.3. The patient has been eating a full- liquid diet during his stay. Discharge Summary [address] [address] NAME: SALVATORE MARQUEZ 3RD : 93 STATUS : DIS IN PAT#: [id number] AGE: 21 ADM/REG DATE : 09/06/16 MR#: [id number] REPORT SERV DATE: 09/09/16 DICTATED BY: DATE: REPORT STATUS : Draft TRANSCRIBED BY: MODL DATE: 09/08/16 PHYSICAL EXAMINATION: GENERAL: The patient denies any complaint of nausea or vomiting today. States his last stool yesterday was loose, but had no diarrhea. Currently has 2/10 epigastric pain with random cramping. VITAL SIGNS: Blood pressure is 100/55, O2 saturation is 98% on room air, temperature is 98.5, respirations are 16, heart rate is 78. HEENT: Head is atraumatic, normocephalic. Pupils are equal, round, reactive to light and accommodation. Sclerae are clear, nonicteric. No xanthelasma. Good dentition. NECK: Supple with no obvious thyromegaly or lymphadenopathy. Neck veins are flat. CARDIAC: S1 and S2 with no obvious murmurs, rubs, or gallops. LUNGS: Lungs are clear to auscultation with normal respiratory effort anteriorly and posteriorly. GI: Abdomen is soft and is tender to palpation about 2 inches above his umbilicus. Bowel sounds are hyperactive in all four quadrants. Normal bowel habitus. No palpable organomegaly. EXTREMITIES: No significant edema, clubbing, or cyanosis. Pulses are present and palpable bilaterally. MUSCULOSKELETAL: Moves all extremities x4. Ambulatory without assistance. No difficulties with balance. SKIN: Skin is warm and dry with normal color and turgor. NEURO: The patient is alert and oriented x4, pleasant and cooperative. Cranial nerves 2 through 12 are grossly intact. DISCHARGE DIET: Low fat. DISCHARGE MEDICATIONS: Nexium 40 mg daily p.r.n. stomach pain, promethazine 25 mg p.o. every four hours as needed for nausea and vomiting, Zofran 4 mg every six hours p.r.n. as needed for nausea and vomiting, Reglan 5 mg p.o. before meals and at bedtime, hydrocodone 5/325 one to two tablets every four hours as needed for pain. ALLERGIES: THE PATIENT HAS NO KNOWN DRUG ALLERGIES. DISCHARGE INSTRUCTIONS: The patient is to follow up with Dr. Tarango on 09/11/2016 and already has a previously scheduled appointment. Should the patient have any extreme abdominal pain, fevers or chills, or excessive nausea and vomiting, he should call his PCP, Dr. Tarango, or present to the ER. This discharge took me approximately 30 minutes coordinating discharge care of this patient including [id number] encounter and summarization of the discharge. DICTATED BY: Judi Weaver NP [facility] [place] Discharge Summary [address] [address] NAME: SALVATORE MARQUEZ 3RD : 93 STATUS : DIS IN PAT#: [id number] AGE: 21 ADM/REG DATE : 09/06/16 MR#: [id number] REPORT SERV DATE: 09/09/16 DICTATED BY: DATE: REPORT STATUS : Draft TRANSCRIBED BY: MODL DATE: 09/08/16 Judi Weaver NP / [id number] CC: Javi Barnes MD
--- NOTE | ~2016-09-06 | CN ---
Consultation Report [facility] [address] [place] [address] NAME: SALVATORE MARQUEZ 3RD : 89 STATUS : ADM IN [facility]#: [id number] AGE: 21 ADM/REG DATE : 09/06/16 MR#: [id number] REPORT SERV DATE: 09/07/16 DICTATED BY: JOSE COFFEY DATE: 09/07/16 REPORT STATUS : Draft TRANSCRIBED BY: MODL DATE: 09/07/16 GI CONSULTATION DATE OF CONSULTATION: 09/07/2016 REASON FOR CONSULTATION: GI consult regarding epigastric pain, question pancreatitis. HISTORY OF PRESENT ILLNESS: This is a 21-year-old, man, who presented to the emergency room with acute onset of epigastric pain, which awakened him from sleep. It was very intense in nature. It continues today, but has improved somewhat. He has had no nausea or vomiting. No melena or hematochezia. He did develop acute onset of diarrhea as well, multiple loose stools. None this morning. Recent workup includes negative CT scan, HIDA scan, and EGD colonoscopy with biopsies. Mesenteric ultrasound negative. MEDICAL HISTORY: Remarkable for benign cyst removal underneath chin as a child. ALLERGIES: NONE. MEDICATIONS: Hydrocodone, Reglan, Zofran, and Phenergan. FAMILY HISTORY: Negative for GI malignancy. SOCIAL HISTORY: He does not use alcohol or tobacco significantly. He does use marijuana occasionally. REVIEW OF SYSTEMS: A complete review of systems was obtained and negative except that noted in the history of present illness. PHYSICAL EXAMINATION: VITAL SIGNS: He is currently afebrile. Vital signs are stable. No tachycardia. LABORATORY DATA: WBC 19.8, hematocrit 43.1, platelets 335. Procalcitonin less than 0.05. BUN is 6, creatinine 1.03. Liver tests are normal. Lipase 1673. UDS is positive for cannabinoids and opiates. Urinalysis is otherwise negative. CT scan of the abdomen and pelvis negative, including evaluation of the pancreas with the exception of thickened colon from ascending through transverse, question under distention versus other. IMPRESSION: 1. Acute onset epigastric pain with elevated lipase. Question early pancreatitis, although, CT imaging does not support at this point. 2. Abnormal CT scan, thickened colon from ascending through transverse, question colitis, Consultation Report [facility] [address] [address] NAME: SALVATORE MARQUEZ 3RD : 89 STATUS : ADM IN PAT#: [id number] AGE: 21 ADM/REG DATE : 09/06/16 MR#: [id number] REPORT SERV DATE: 09/07/16 DICTATED BY: JOSE COFFEY DATE: 09/07/16 REPORT STATUS : Draft TRANSCRIBED BY: MODL DATE: 09/07/16 although, it is more likely under distention. 3. Acute onset diarrhea. RECOMMENDATIONS: 1. Check C. difficile toxin, parasite, culture, and stool. 2. Check triglyceride level. 3. Check abdominal ultrasound. 4. Intravenous fluids and medications for support of symptoms. [facility] Jose Coffey M.D. / [id number] CC: Javi Barnes MD
--- NOTE | ~2016-09-06 | HP ---
History And Physical [id number] [facility] [place]. [address] NAME: SALVATORE MARQUEZ 3RD : 89 STATUS : ADM IN [facility]#: [id number] AGE: 21 ADM/REG DATE : 09/06/16 MR#: [id number] REPORT SERV DATE: 09/07/16 DICTATED BY: TANISHA KATE DATE: 09/06/16 REPORT STATUS : Draft TRANSCRIBED BY: MODL DATE: 09/06/16 DATE OF ADMISSION: 09/06/2016 CHIEF COMPLAINT: Abdominal pain, nausea, vomiting, diarrhea, and inability to keep anything down starting today. HISTORY OF PRESENT ILLNESS: This is a very pleasant 21-year-old gentleman that he has been having for about two months or so episodes of intractable abdominal pain, nausea, and vomiting. In fact, the patient has been evaluated in the past at [facility] as well as [facility], and he has been recently admitted to [facility] and discharged on 09/01/2016, for abdominal pain, nausea, vomiting. During this hospitalization, the patient did have a CT of the abdomen and pelvis and HIDA scan. Also he has had mesenteric ultrasound. He has been scoped by Dr. Schmitz with EGD and colonoscopy with no significant abnormalities. He has been treated with symptomatic treatment Zofran, Phenergan, and Reglan, and he has been discharged home. According to the patient and his mother, who is accompanying the patient, he was able to tolerate food and medications. He woke up though this morning and he started again to have a sharp epigastric abdominal pain with nausea and vomiting as well as diarrhea. He did not have any hematemesis, melena. No hematochezia. No other complaints. He was not been able to keep anything down and as a result, he came back to [facility] for further evaluation and treatment. PAST MEDICAL HISTORY: Significant only for recurrent abdominal pain, nausea, and vomiting. PAST SURGICAL HISTORY: He has a cyst removal from underneath his chin when he was a child. ALLERGIES: HE DOES NOT HAVE ANY DRUG ALLERGIES. MEDICATIONS: At home include Gibson, Reglan, Zofran, and Phenergan. FAMILY HISTORY: Significant for cancer. REVIEW OF SYSTEMS: A 14-point review of system has been obtained and pertinent positive has been listed into the history of present illness. Otherwise, negative except those underlying above. PHYSICAL EXAMINATION: VITAL SIGNS: He has T-max 99.2, blood pressure 137/95, heart rate 109, respiratory rate 20, and saturating 100% on room air. GENERAL: He is a very pleasant, well-developed, well-nourished gentleman, in mild distress secondary to abdominal discomfort. Alert and oriented x3. Nonfocal. He follows commands appropriately. HEENT: Shows pupils equal, round, reactive to light. Extraocular movements intact. Dry mucous membranes. No JVD. No lymphadenopathy. No thyromegaly appreciated. CHEST: Eval shows bilateral air entry. Clear anteroposterior. No wheezes, crackles, or rhonchi appreciated. History And Physical [address] [address] NAME: SALVATORE MARQUEZ 3RD : 89 STATUS : ADM IN [facility]#: [id number] AGE: 21 ADM/REG DATE : 09/06/16 MR#: [id number] REPORT SERV DATE: 09/07/16 DICTATED BY: TANISHA KATE DATE: 09/06/16 REPORT STATUS : Draft TRANSCRIBED BY: LIDIA DATE: 09/06/16 CARDIOVASCULAR: He has regular rate and rhythm. S1, S2 positive. No S3, no S4. No murmurs, rubs, or gallops appreciated. ABDOMEN: Soft, but there is tender on the epigastric area. Hypoactive bowel sounds. No guarding, no rebound. EXTREMITIES: No clubbing, cyanosis, or edema. NEUROLOGIC: He is alert and oriented x3. Nonfocal. He follows all his commands appropriately. LABORATORY DATA: Labs from today include sodium 139, potassium 4.5, chloride 102, CO2 26, BUN 6, creatinine 1.03, glucose is 102. His liver function test shows a total bilirubin 0.5, alk phos 78, ALT 52, AST 35. His lipase is 1673. His white count is 19.8, hemoglobin 14.7, hematocrit 43.1, and platelets are 335. INR is 1.1. His UA performed in the emergency room has been negative. His CT of the abdomen and pelvis with IV contrast is currently pending. ASSESSMENT: This is a 21-year-old gentleman with recurrent nausea, abdominal pain, and diarrhea with: 1. Acute pancreatitis. 2. Abdominal pain, nausea, vomiting, and diarrhea. Possible gastroenteritis. 3. Leukocytosis. 4. Dehydration. PLAN: 1. The patient is going to be admitted to Hospitalist Service. We are going to keep him n.p.o. We are going to get the CT of the abdomen and pelvis with IV contrast. Protonix IV. Also check blood cultures. Check stool cultures, stool for C. difficile, stool for fecal leukocytes, and ova and parasites. We are going to reconsult Dr. Schmitz from [facility] Service Supportive treatment with nausea and pain control. 2. Intractable nausea, vomiting, abdominal pain, and diarrhea. Possible gastroenteritis. We are going to check his stools. We will get the CT of the abdomen and pelvis. We are keeping the patient n.p.o. and place him on empiric antibiotics with Levaquin and Flagyl. 3. We are going to provide reasonable pain and nausea control as well as GI and DVT prophylaxis. Further workup and recommendation pending above. It is worthwhile to note that patient is going to be followed by Hospitalist Service. CF/MODL Tanisha Kate M.D. / [id number] CC: History And Physical [address] [address] NAME: SALVATORE MARQUEZ 3RD : 89 STATUS : ADM IN [facility]#: [id number] AGE: 21 ADM/REG DATE : 09/06/16 MR#: [id number] REPORT SERV DATE: 09/07/16 DICTATED BY: TANISHA KATE DATE: 09/06/16 REPORT STATUS : Draft TRANSCRIBED BY: MODL DATE: 09/06/16 Javi Barnes MD
[2016-09-06 21:17] LABS: BASOPHILS 0.1 %; BASOPHILS ABSOLUTE 0.02 10/3/uL (0.0-0.16); EOSINOPHILS 0 %; ER CBC TAT 0 Hrs 10 Mins; HEMATOCRIT 43.1 % (40.0-51.0); HEMOGLOBIN 14.7 g/dL (13.6-17.8); IMMATURE GRANULOCYTES 0.6 %; IMMATURE GRANULOCYTES ABSOLUTE 0.12 10/3/uL (0.0-0.11); LYMPHOCYTES ABSOLUTE 1.58 10/3/uL (0.67-4.30); MEAN CORPUS HGB CONC 34.1 g/dL (32.0-36.0); MEAN CORPUSCULAR HEMOGLOB 30.5 pg (26.0-34.0); MEAN CORPUSCULAR VOLUME 89.4 fL (80-100); MEAN PLATELET VOLUME 9.7 fL (9.2-13.0); NEUTROPHILS 89.3 %; NEUTROPHILS ABSOLUTE 17.72 10/3/uL (2.02-8.40); PLATELET COUNT 335 10/3/uL (150-400); RBC DISTRIBUTION WIDTH 13.4 % (12.0-16.0); RED CELL COUNT 4.82 10/6/uL (4.7-6.1); WHITE BLOOD CELLS 19.8 10/3/uL (4.5-10.5)
[2016-09-06 21:18] LABS: MANUAL DIFF NO %
[~2016-09-06 21:28] MED LIST changes: +NORCO1 TA1 PO; +PR25 PO; +REG5 PO
[2016-09-06 21:30] LABS: BUN (BLOOD UREA NITROGEN) 6 MG/DL (6-23); CALCIUM, SERUM 9.9 MG/DL (8.5-10.4); CHLORIDE, SERUM 102 MMOL/L (96-112); CO2 (CARBON DIOXIDE) 26 MMOL/L (24-34); CREATININE 1.03 MG/DL (0.70-1.30); GFR AFRICAN AMERICAN 118 ML/MIN (>=60); GFR NON AFRICAN AMERICAN 102 ML/MIN (>=60); GLUCOSE, SERUM 102 MG/DL (60-99); SGPT(ALT) 52 U/L (5-65); SODIUM, SERUM 139 MMOL/L (135-148); TOTAL BILIRUBIN 0.5 MG/DL (0-1.2)
[2016-09-06 21:33] LABS: A/G RATIO 1.1 (0.7-1.9); ALBUMIN 4.2 G/DL (3.5-5.0); ALKALINE PHOSPHATASE 78 U/L (45-117); GLOBULIN 3.9 G/DL (2.5-4.1); POTASSIUM, SERUM 4.5 MMOL/L (3.5-5.3); SGOT(AST) 35 U/L (5-40); TOTAL PROTEIN 8.1 G/DL (6.0-8.5)
[2016-09-06 22:01] LABS: ASCORBIC ACID (UR NOT ORDER) NEG (NEG); BILIRUBIN, URINE NEGATIVE (NEG); ER URINALYSIS TAT 0 Hrs 10 Mins; KETONE, URINE NEGATIVE (NEG); LEUKOCYTE ESTERASE(NOT OR NEG (NEG); NITRITE (URINE) NEG (NEG); WBC (NOT ORDERED) (RFLEX) 1 (0-5)
[2016-09-06] MEDS ORDERED: NEXIUM40 PO (23:25)
[2016-09-07 00:23] LABS: PROCALCITONIN <0.05 ng/mL (<0.5)
[2016-09-07 06:34] LABS: AMPHETAMINES (NOT ORD) NEG (NEG); BARBITURATES (NOT ORDERED NEG (NEG); BENZODIAZEPINES (NOT ORD) NEG (NEG); CANNABINOIDS (THC) POS (NEG); COCAINE (NOT ORDERED) NEG (NEG); OPIATES POS (NEG); PHENCYCLIDINE(PCP) NEG (NEG); TRICYCLICS NEG (NEG)
[2016-09-07 08:05] LABS: ASCORBIC ACID (UR NOT ORDER) NEG (NEG); BILIRUBIN, URINE NEGATIVE (NEG); KETONE, URINE TRACE MG/DL (NEG); LEUKOCYTE ESTERASE(NOT OR NEG (NEG); WBC (NOT ORDERED) (RFLEX) 1 (0-5)
[2016-09-07 08:21] LABS: AMPHETAMINES (NOT ORD) NEG (NEG); BARBITURATES (NOT ORDERED NEG (NEG); BENZODIAZEPINES (NOT ORD) NEG (NEG); CANNABINOIDS (THC) POS (NEG); COCAINE (NOT ORDERED) NEG (NEG); OPIATES POS (NEG); PHENCYCLIDINE(PCP) NEG (NEG); TRICYCLICS NEG (NEG)
[2016-09-07 08:29] LABS: BASOPHILS 0.2 %; BASOPHILS ABSOLUTE 0.03 10/3/uL (0.0-0.16); EOSINOPHILS 0.2 %; EOSINOPHILS ABSOLUTE 0.03 10/3/uL (0.0-0.53); HEMATOCRIT 39.5 % (40.0-51.0); HEMOGLOBIN 13.2 g/dL (13.6-17.8); IMMATURE GRANULOCYTES 0.5 %; IMMATURE GRANULOCYTES ABSOLUTE 0.09 10/3/uL (0.0-0.11); LYMPHOCYTES 15.4 %; MEAN CORPUS HGB CONC 33.4 g/dL (32.0-36.0); MEAN CORPUSCULAR HEMOGLOB 29.7 pg (26.0-34.0); MEAN PLATELET VOLUME 9.2 fL (9.2-13.0); MONOCYTES 6.4 %; MONOCYTES ABSOLUTE 1.13 10/3/uL (0.21-1.20); NEUTROPHILS 77.3 %; NEUTROPHILS ABSOLUTE 13.55 10/3/uL (2.02-8.40); PLATELET COUNT 310 10/3/uL (150-400); RBC DISTRIBUTION WIDTH 13.7 % (12.0-16.0); RED CELL COUNT 4.44 10/6/uL (4.7-6.1); WHITE BLOOD CELLS 17.5 10/3/uL (4.5-10.5)
[2016-09-07 08:30] LABS: MANUAL DIFF NO %
[2016-09-07 08:55] LABS: B NATRIURETIC PEPTIDE (BNP) 20.8 PG/ML (< 100.0)
[2016-09-07 09:08] LABS: A/G RATIO 1.1 (0.7-1.9); ACETAMINOPHEN LEVEL (TYLENOL) < 2.0 MCG/ML (10.0-20.0); ALBUMIN 3.6 G/DL (3.5-5.0); ALCOHOL < 10 MG/DL (0); ALKALINE PHOSPHATASE 70 U/L (45-117); BUN (BLOOD UREA NITROGEN) 8 MG/DL (6-23); CALCIUM, SERUM 9.7 MG/DL (8.5-10.4); CHLORIDE, SERUM 105 MMOL/L (96-112); CO2 (CARBON DIOXIDE) 27 MMOL/L (24-34); CREATININE 0.83 MG/DL (0.70-1.30); FREE T4 0.85 NG/DL (0.76-1.46); GFR AFRICAN AMERICAN 144 ML/MIN (>=60); GFR NON AFRICAN AMERICAN 124 ML/MIN (>=60); GLOBULIN 3.4 G/DL (2.5-4.1); GLUCOSE, SERUM 110 MG/DL (60-99); PHOSPHORUS, SERUM 4.2 MG/DL (2.5-4.5); SALICYLATE < 1.7 MG/DL (-); SGOT(AST) 16 U/L (5-40); SGPT(ALT) 40 U/L (5-65); SODIUM, SERUM 141 MMOL/L (135-148); TOTAL BILIRUBIN 0.5 MG/DL (0-1.2); TRIGLYCERIDE 56 MG/DL (< 150); ULTRASENSITIVE TSH 0.288 MCIU/ML (0.358-3.740)
[2016-09-07 12:37] LABS: GLYCOHEMOGLOBIN (HbA1c) 5.4 % (4.7-6.1)
[2016-09-08 04:02] LABS: BASOPHILS 0.2 %; BASOPHILS ABSOLUTE 0.03 10/3/uL (0.0-0.16); EOSINOPHILS 0.8 %; HEMATOCRIT 37.6 % (40.0-51.0); HEMOGLOBIN 12.5 g/dL (13.6-17.8); IMMATURE GRANULOCYTES 0.6 %; IMMATURE GRANULOCYTES ABSOLUTE 0.07 10/3/uL (0.0-0.11); LYMPHOCYTES 34.9 %; LYMPHOCYTES ABSOLUTE 4.29 10/3/uL (0.67-4.30); MEAN CORPUS HGB CONC 33.2 g/dL (32.0-36.0); MEAN CORPUSCULAR HEMOGLOB 30.3 pg (26.0-34.0); MEAN PLATELET VOLUME 9.1 fL (9.2-13.0); MONOCYTES 7.3 %; NEUTROPHILS 56.2 %; PLATELET COUNT 277 10/3/uL (150-400); RBC DISTRIBUTION WIDTH 13.9 % (12.0-16.0); RED CELL COUNT 4.13 10/6/uL (4.7-6.1); WHITE BLOOD CELLS 12.3 10/3/uL (4.5-10.5)
[2016-09-08 04:03] LABS: MANUAL DIFF NO %
[2016-09-08 04:18] LABS: BUN (BLOOD UREA NITROGEN) 8 MG/DL (6-23); CALCIUM, SERUM 9.1 MG/DL (8.5-10.4); CHLORIDE, SERUM 109 MMOL/L (96-112); CO2 (CARBON DIOXIDE) 26 MMOL/L (24-34); CREATININE 0.97 MG/DL (0.70-1.30); GFR AFRICAN AMERICAN 127 ML/MIN (>=60); GFR NON AFRICAN AMERICAN 110 ML/MIN (>=60); GLUCOSE, SERUM 93 MG/DL (60-99); POTASSIUM, SERUM 4.2 MMOL/L (3.5-5.3); SODIUM, SERUM 142 MMOL/L (135-148)
== END 2016-09-08 17:27 | disposition home or self-care (01) | DRG 392 ==
LOC: ER 21:28 → 5SO 23:01
PROVIDERS: Internal Medicine; Internal Medicine Gastroenterology; Nurse Practitioner; Nurse Practitioner Family
DX: R10.13 Epigastric pain (principal); E72.4 Disorders of ornithine metabolism; E86.0 Dehydration; Z80.8 Family history of malignant neoplasm of other organs or systems; F12.90 Cannabis use, unspecified, uncomplicated; R19.7 Diarrhea, unspecified
CPT/HCPCS: 71010; 74177; 76700; 80048; 80053; 80305; 80307; 81001; 82140; 82150; 82607; 82746; 83036; 83605; 83615; 83690; 83735; 83880; 84100; 84145; 84439; 84443; 84478; 85025; 87040; 87045; 87046; 87046-59; 87328; 87329; 87493; 87493-59; 87899; 87899-59; 96374; 99285; A9270-GY; C9113; J1170; J1956; J2405; J2550; J2765; Q9967